=== PATIENT | male | born 1970 | race Caucasian/White ===

== ENCOUNTER 2019-04-08 19:00 | Emergency (ER) | payer BC ==
--- NOTE | 2019-04-08 19:09 | EDM.PDOC ---
ED HPI GENERAL MEDICAL PROBLEM - General Chief Complaint: Eye Problems Stated Complaint: REDNESS OF EYE Time Seen by Provider: 04/08/19 19:08 Source of Information: Reports: Patient History Limitations: Reports: No Limitations - History of Present Illness INITIAL COMMENTS - FREE TEXT/NARRATIVE: HISTORY AND PHYSICAL: History of present illness: Patient is a 49-year-old male who presents to the emergency room with complaints of irritation and redness of the right eye. He states he has been having this problem intermittently for several months. He has seen an mail carrier on 3 separate occasions. He states that he initially was informed he had a "cyst" along the eyelid which she has been placing warm compresses and lubricating drops. The last 2 occasions he states he was given topical steroid which worked the first round but appeared to be less effective the second round. Again he is unsure of what he was diagnosed with or what prescription medication he was given. He states that he has had this redness intermittently this time for approximately one week. He has been using lubricating eyedrops at home without much relief. He denies any injury, trauma or foreign body of the eye. Does not wear contact lenses. Does use corrective glasses. Besides the irritation he does not have any visual changes or drainage from the eye. Patient denies any fever, chills, headache, change in vision, syncope or near syncope. Denies any chest pain, back pain, shortness of breath or cough. Denies any GI or symptoms. Patient has been eating and drinking appropriately. Review of systems: As per history of present illness and below otherwise all systems reviewed and negative. Past medical history: As per history of present illness and as reviewed below otherwise noncontributory. Surgical history: As per history of present illness and as reviewed below otherwise noncontributory. Social history: See social history for further information Family history: As per history of present illness and as reviewed below otherwise noncontributory. Physical exam: General: Well-developed and well-nourished 49-year-old male. Alert and oriented. Nontoxic appearing and in no acute distress. HEENT: Atraumatic, normocephalic, pupils equal and reactive bilaterally, negative for conjunctival pallor or scleral icterus, scleral injection to the right lateral portion of the eye, mucous membranes moist, TMs normal bilaterally , throat clear, neck supple, nontender, trachea midline. No drooling or trismus noted. No meningeal signs. No hot potato voice noted. Lungs: Clear to auscultation, breath sounds equal bilaterally. Heart: S1S2, regular rate and rhythm without overt murmur Abdomen: Soft, nondistended, nontender. Skin: Intact, warm, dry. No lesions or rashes noted. Extremities: Atraumatic, moves all extremities per self without difficulty or deficits. Neurovascular unremarkable. Neuro: Awake, alert, oriented. Cranial nerves II through XII unremarkable. Cerebellum unremarkable. Motor and sensory unremarkable throughout. Exam nonfocal. Notes: During the floor seen eye exam he does have a small corneal abrasion noted at the 3 o'clock position on the iris. Scleral injection noted to the 6 to 12 o' clock position of the lateral right eye. Patient states he is going to follow- up with the mail carrier. We'll give him erythromycin ointment. Supportive care measures were reviewed and discussed. Voices understanding and is agreeable to plan of care. Denies any further questions or concerns at this time. Diagnostics: None Therapeutics: Tetracaine, fluorescein eye exam, erythromycin ointment Prescription: Erythromycin Impression: Corneal abrasion, right Scleral injection, right Plan: 1. Continue using the lubricating eyedrops. Take the erythromycin ointment as directed. 2. Follow-up with the mail carrier as we discussed. Return to the ED as needed and as discussed. Definitive disposition and diagnosis as appropriate pending reevaluation and review of above. right eye Pain Score (Numeric/FACES): 5 - Related Data Allergies Allergy/AdvReac Type Severity Reaction Status Date / Time No Known Allergies Allergy Verified 04/08/19 19:14 Home Meds: Home Meds Esomeprazole Magnesium [Nexium] 20 mg PO DAILY 04/08/19 [History] ED ROS GENERAL - Review of Systems Review Of Systems: ROS reveals no pertinent complaints other than HPI. ED EXAM GENERAL W FULL EYE - Physical Exam Exam: See Below (See dictation) Course - Vital Signs Last Recorded V/S: Last Vital Signs Temp 97.0 F 04/08/19 20:00 Pulse 78 04/08/19 20:00 Resp 18 04/08/19 20:00 BP 130/76 04/08/19 20:00 Pulse Ox 97 04/08/19 20:00 - Orders/Labs/Meds Meds: Medications Discontinued Medications Generic Name Dose Route Start Last Admin Trade Name Melvina PRN Reason Stop Dose Admin Erythromycin 1 gm 04/08/19 19:40 04/08/19 19:42 Erythromycin 0.5% Ophth Oint EYERT 04/08/19 19:41 1 applic ONETIME STA Administration Tetracaine HCl 1 ml 04/08/19 19:28 04/08/19 19:42 Tetracaine 0.5% Steri-Unit Nanda EYERT 04/08/19 19:29 2 drop ASDIRECTED ONE Administration Departure - Departure Time of Disposition: 20:32 Disposition: Home, Self-Care 01 Clinical Impression: Scleral injection Corneal abrasion Qualifiers: Encounter type: initial encounter Laterality: right Qualified Code(s): S05.01XA - Injury of conjunctiva and corneal abrasion without foreign body, right eye, initial encounter - Discharge Information Instructions: Corneal Abrasion, [id number] Referrals: PCP,None [Primary Care Provider] - Forms: ED Department Discharge Additional Instructions: The following information is given to patients seen in the emergency department who are being discharged to home. This information is to outline your options for follow-up care. We provide all patients seen in our emergency department with a follow-up referral. The need for follow-up, as well as the timing and circumstances, are variable depending upon the specifics of your emergency department visit. If you don't have a primary care physician on staff, we will provide you with a referral. We always advise you to contact your personal physician following an emergency department visit to inform them of the circumstance of the visit and for follow-up with them and/or the need for any referrals to a consulting specialist. The emergency department will also refer you to a specialist when appropriate. This referral assures that you have the opportunity for follow-up care with a specialist. All of these measure are taken in an effort to provide you with optimal care, which includes your follow-up. Under all circumstances we always encourage you to contact your private physician who remains a resource for coordinating your care. When calling for follow-up care, please make the office aware that this follow-up is from your recent emergency room visit. If for any reason you are refused follow-up, please contact the [facility] Emergency Department at and asked to speak to the emergency department charge nurse. SHIVANI [facility] [address] [place] [address] [facility] [address] [place] [id number] 1. Continue using the lubricating eyedrops. Take the erythromycin ointment as directed. 2. Follow-up with the mail carrier as we discussed. Return to the ED as needed and as discussed.
[2019-04-08] MEDS ORDERED: Tetracaine HCl/PF 0.5% 4 ML Bottle EYERT ONE (19:28)
[2019-04-08] MEDS ORDERED: Erythromycin Base 0.5% Ophth Oint 1 GM Tube EYERT STA (19:40)
== END 2019-04-08 20:00 | disposition home or self-care (01) ==
LOC: MW.ED 19:00
DX: S05.01XA Injury of conjunctiva and corneal abrasion without foreign body, right eye, initial encounter (principal); H15.89 Other disorders of sclera; Z79.899 Other long term (current) drug therapy; X58.XXXA Exposure to other specified factors, initial encounter
CPT/HCPCS: 99283; A9270